=== PATIENT | female | born 1980 | race Caucasian/White ===

== ENCOUNTER 2019-08-05 13:48 | Emergency (ER) | payer BC ==
[~2019-08-05] VITALS: Ht 167.6 cm; Wt 63.6 kg
[~2019-08-05 13:48] MED LIST: COLACE 100100 MG/CAP PO; MIRENA52 MG IU; PRENATAL VITAMI1 TA5 PO
[2019-08-05 14:00] VITALS: BP 167/99; PULSE 78; TEMP 99.2
== END 2019-08-05 14:38 | disposition home or self-care (01) ==
LOC: COL.ER 13:48
DX: S01.01XA Laceration without foreign body of scalp, initial encounter (principal); W01.198A Fall on same level from slipping, tripping and stumbling with subsequent striking against other object, initial encounter; Y92.009 Unspecified place in unspecified non-institutional (private) residence as the place of occurrence of the external cause

== ENCOUNTER → 2019-08-14 | Outpatient (CLI) | payer BC ==
[2019-08-14 14:35] VITALS: BP 144/81; PULSE 74; TEMP 98.9
== END ==
LOC: COL.ER 14:24
DX: S01.01XD Laceration without foreign body of scalp, subsequent encounter (principal); X58.XXXD Exposure to other specified factors, subsequent encounter

== ENCOUNTER 2020-11-12 23:31 | Emergency (ER) | payer BC ==
[~2020-11-12] VITALS: Ht 165.1 cm; Wt 65.9 kg
[2020-11-12 23:35] VITALS: TEMP 98.4
[2020-11-13 00:35] VITALS: BP 144/92; PULSE 85
== END 2020-11-13 00:35 | disposition home or self-care (01) ==
LOC: COL.ER 23:31
DX: S90.31XA Contusion of right foot, initial encounter (principal); W22.8XXA Striking against or struck by other objects, initial encounter; Y92.090 Kitchen in other non-institutional residence as the place of occurrence of the external cause